=== PATIENT | female | born 1970 | race Caucasian/White ===

== ENCOUNTER 2020-11-06 16:25 | Emergency (ER) | payer OTHER ==
[~2020-11-06 16:25] MED LIST: B-121000 MCG PO; BENTYL 10MG CAP10 MG PO; BUSPAR 5MG TABLE5 MG PO; CETIRIZINE HCL10 MG PO; HYZAAR 50-12.51 EACH PO; LORTAB 5-325 M1 EACH PO; MIRALAX17 GM PO; NAPROXEN 250 M250 MG PO; VITAMIN D31000 UNIT PO
[2020-11-06 17:28] LABS: HEMOGLOBIN 12.6 gm/dl (12.3-15.3); RED BLOOD COUNT 4.44 M/UL (4.00-5.10); WHITE BLOOD COUNT 14.8 K/UL (4.5-11.0)
== END 2020-11-06 19:17 | disposition home or self-care (01) ==
LOC: ER1 16:25
PROVIDERS: Physician Assistant
DX: R25.1 Tremor, unspecified (principal); F17.200 Nicotine dependence, unspecified, uncomplicated; Z79.899 Other long term (current) drug therapy
CPT/HCPCS: 70450; 80053; 80178; 82550; 82553; 83735; 83874; 84439; 84443; 84484; 85025; 93005; 99284; G0480

== ENCOUNTER → 2020-12-18 | Outpatient (CLI) | payer OTHER | LOC: EMI 11:04 | DX: R25.1 Tremor, unspecified (principal) | CPT/HCPCS: 70551 ==